=== PATIENT | male | born 1950 | race Caucasian/White ===

== ENCOUNTER 2017-02-08 12:41 | Day surgery (SDC) | payer OTHER ==
[~2017-02-08 12:41] MED LIST: AMB10 PO; FLONASE NAS; HYGROTON 25 MG25 MG PO; MOBIC7.5 PO; PROTONIX PO
[2017-02-08 13:44] LABS: BASOPHILS 0.4 %; BASOPHILS ABSOLUTE 0.03 10/3/uL (0.0-0.16); EOSINOPHILS 2.9 %; EOSINOPHILS ABSOLUTE 0.21 10/3/uL (0.0-0.53); HEMOGLOBIN 15.9 g/dL (13.6-17.8); IMMATURE GRANULOCYTES 0.4 %; IMMATURE GRANULOCYTES ABSOLUTE 0.03 10/3/uL (0.0-0.11); LYMPHOCYTES 17.3 %; LYMPHOCYTES ABSOLUTE 1.27 10/3/uL (0.67-4.30); MEAN CORPUS HGB CONC 34.6 g/dL (32.0-36.0); MEAN CORPUSCULAR HEMOGLOB 31.8 pg (26.0-34.0); MEAN PLATELET VOLUME 9.7 fL (9.2-13.0); MONOCYTES ABSOLUTE 0.96 10/3/uL (0.21-1.20); NEUTROPHILS ABSOLUTE 4.86 10/3/uL (2.02-8.40); PLATELET COUNT 200 10/3/uL (150-400); RBC DISTRIBUTION WIDTH 13.2 % (12.0-16.0); WHITE BLOOD CELLS 7.4 10/3/uL (4.5-10.5)
[2017-02-08 13:47] LABS: MANUAL DIFF NO %
[2017-02-08 13:52] LABS: INTERNATIONAL NORMAL RATI 1.1 UNITS (-); PARTIAL THROMBO TIME 26.1 SEC (22.5-37.2); PROTIME (NOT ORD) 13.8 SEC (12.0-14.5)
[2017-02-08 13:55] LABS: CALCIUM, SERUM 9.6 MG/DL (8.5-10.4); CHLORIDE, SERUM 104 MMOL/L (96-112); CO2 (CARBON DIOXIDE) 33 MMOL/L (24-34); CREATININE 1.22 MG/DL (0.70-1.30); GFR AFRICAN AMERICAN 72 ML/MIN (>=60); GFR NON AFRICAN AMERICAN 62 ML/MIN (>=60); GLUCOSE, SERUM 97 MG/DL (60-99); POTASSIUM, SERUM 3.6 MMOL/L (3.5-5.3); SODIUM, SERUM 140 MMOL/L (135-148)
[2017-02-08 13:56] LABS: BUN (BLOOD UREA NITROGEN) 18 MG/DL (6-23)
== END 2017-02-08 20:53 | disposition home or self-care (01) ==
LOC: DMU 12:41
PROVIDERS: Anesthesiology; Internal Medicine
PROC: 07B74ZX Excision of Thorax Lymphatic, Percutaneous Endoscopic Approach, Diagnostic (ICD-10-PCS; principal; 2017-02-08 14:00)
DX: R59.0 Localized enlarged lymph nodes (principal); K21.9 Gastro-esophageal reflux disease without esophagitis; H91.90 Unspecified hearing loss, unspecified ear; M19.90 Unspecified osteoarthritis, unspecified site; Z79.51 Long term (current) use of inhaled steroids; Z79.1 Long term (current) use of non-steroidal anti-inflammatories (NSAID); Z79.899 Other long term (current) drug therapy; Z98.890 Other specified postprocedural states; Z85.828 Personal history of other malignant neoplasm of skin
CPT/HCPCS: 71010; 80048; 85025; 85610; 85730; 87015; 87070; 87102; 87116; 87205; 88172; 88173; 88305; 88312; 93005; C1725; J2405; J3010

== ENCOUNTER 2017-03-16 14:50 | Inpatient (IN) | payer OTHER ==
--- NOTE | ~2017-03-16 | EGD ---
EGD REPORT [facility] [address] [address] NAME: ANDREW TAPIA : [birth year] STATUS : ADM IN PAT#: [id number] AGE: 66 ADM/REG DATE : 03/16/17 MR#: [id number] REPORT SERV DATE: 03/17/17 DICTATED BY: YAW HSU DATE: 03/17/17 REPORT STATUS : Draft [facility]ANSCRIBED BY: [facility] DATE: 03/17/17 [facility] Center Patient Name: Andrew Tapia Date of : 1950 Attending MD: YAW HSU MD Procedure Date No Time: 03/17/2017 Procedure: Upper GI endoscopy Indications: Place PEG due to feeding difficulties secondary to oropharyngeal tumor Referring MD: KARLEE JUNG Medicines: as per anesthesia Complications: No immediate complications. Procedure: Pre-Anesthesia Assessment: - ASA Grade Assessment: II - A patient with mild systemic disease. After obtaining informed consent, the endoscope was passed under direct vision. Throughout the procedure, the patient's blood pressure, pulse, and oxygen saturations were monitored continuously. The GIF [id number] was introduced through the mouth, and advanced to the third part of duodenum. The upper GI endoscopy was accomplished without difficulty. The patient tolerated the procedure. Findings: The examined esophagus was normal. Patchy moderate inflammation characterized by erythema and friability was found in the gastric fundus and in the gastric body. Multiple sessile polyps were found in the gastric fundus and in the gastric body. The cardia and gastric fundus were normal on retroflexion. The examined duodenum was normal. The patient was placed in the supine position for PEG placement. The stomach was insufflated to appose gastric and abdominal kay. A site was located in the body of the stomach with good transillumination for placement. The abdominal wall was marked and prepped in a sterile manner. The area was anesthetized with 4 mL of 1% lidocaine. The trocar needle was introduced through the abdominal wall and into the stomach under direct endoscopic view. A snare was introduced through the endoscope and opened in the gastric lumen. The guide wire was passed through the trocar and into the open snare. The snare was closed around the guide wire. The endoscope and snare were removed, pulling the wire out through the mouth. A skin incision was made at the site of needle insertion. The externally removable 24 Fr EndoVive Safety gastrostomy tube was lubricated. The G-tube was tied to the guide wire and pulled EGD REPORT [address] [place]. [address] NAME: ANDREW TAPIA : [birth year] STATUS : ADM IN [facility]#: [id number] AGE: 66 ADM/REG DATE : 03/16/17 MR#: [id number] REPORT SERV DATE: 03/17/17 DICTATED BY: YAW HSU DATE: 03/17/17 REPORT STATUS : Draft [facility]ANSCRIBED [facility]: [facility] DATE: 03/17/17 through the mouth and into the stomach. The trocar needle was removed, and the gastrostomy tube was pulled out from the stomach through the skin. The external bumper was attached to the gastrostomy tube, and the tube was cut to remove the guide wire. The final position of the gastrostomy tube was confirmed by relook endoscopy, and skin marking noted to be 3 cm at the external bumper. The final tension and compression of the abdominal wall by the PEG tube and external bumper were checked and revealed that the bumper was loose and lightly touching the skin and that the PEG balloon was loose and lightly touching the stomach. The feeding tube was capped, and the tube site cleaned and dressed. Impression: - Normal esophagus. - Gastritis. - Multiple gastric polyps. - Normal examined duodenum. - An externally removable PEG placement was successfully completed. Recommendation: - Please follow the post-PEG recommendations. Procedure Code(s): --- Professional --- 99524, Esophagogastroduodenoscopy, flexible, transoral; with directed placement of percutaneous gastrostomy tube Diagnosis Code(s): --- Professional --- K29.70, Gastritis, unspecified, without bleeding K31.7, Polyp of stomach and duodenum D37.05, Neoplasm of uncertain behavior of pharynx R63.3, Feeding difficulties Z43.1, Encounter for attention to gastrostomy CPT copyright 2013 [employer]. All rights reserved. The codes documented in this report are preliminary and upon paint coating machine operator review may be revised to meet current compliance requirements. YWA HSU MD 03/17/2017 2:48 PM This report has been signed electronically. Number of Addenda: 0 Note Initiated On: 03/17/2017 2:01 PM Scope Withdrawal Time 0 hours 0 minutes 0 seconds EGD REPORT [facility] [address] [address] NAME: ANDREW TAPIA : [birth year] STATUS : ADM IN [facility]#: [id number] AGE: 66 ADM/REG DATE : 03/16/17 MR#: [id number] REPORT SERV DATE: 03/17/17 DICTATED BY: YAW HSU DATE: 03/17/17 REPORT STATUS : Draft TRANSCRIBED BY: [employer] DATE: 03/17/17 [address] [id number]
--- NOTE | ~2017-03-16 | CN ---
Consultation Report [facility] [address] [place]. 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 He has been followed by Dr. Casas and Dr. Singh. Dr. Casas is out of town and Dr. Jordan admitted him from clinic today, decreased appetite, dehydration, weight loss, nausea, vomiting, odynophagia, some minimal dysphagia, and some GERD. SOCIAL HISTORY: Positive nicotine, occasional EtOH. FAMILY HISTORY: Positive for colon cancer. LABORATORY DATA: LFTs are normal. Hemoglobin 15.2, white count 10.3, INR is normal, and platelet count 137,000. Had colonoscopy in 2013 with diverticular disease. PHYSICAL EXAMINATION: GENERAL: A well-developed, well-nourished white male, alert. HEENT: Some facial rash related to the chemo. NECK: Again, some sequelae on the lymph nodes, on the left. CHEST: Clear to percussion. HEART: Regular rhythm. No murmur or gallop. ABDOMEN: Soft and nontender. Bowel sounds are active. EXTREMITIES: Grossly intact. NEUROLOGIC: Grossly intact. ASSESSMENT: Stage IV oropharyngeal cancer, one month of radiation and chemo, last chemo today. Nausea, vomiting, weight loss, odynophagia. Request for PEG placement. SUGGESTION: Risks, benefits with the patient's family agreed to proceed with PEG placement. DIANA/FRANCISCO Yaw Hsu M.D. / [id number] Consultation Report [address] [place]. [address] NAME: DOMI AGGARWAL : [birth year] STATUS : ADM IN PAT#: [id number] AGE: 66 ADM/REG DATE : 03/16/17 MR#: [id number] REPORT SERV DATE: 03/17/17 DICTATED BY: YWA HSU DATE: 03/16/17 REPORT STATUS : Draft TRANSCRIBED BY: FRANCISCO DATE: 03/16/17 CC: MD Garland Serrano M.D.
--- NOTE | ~2017-03-16 | HP ---
History And Physical [address] [address] NAME: DOMI AGGARWAL : [birth year] STATUS : ADM IN [facility]#: [id number] AGE: 66 ADM/REG DATE : 03/16/17 MR#: [id number] REPORT SERV DATE: 03/16/17 DICTATED BY: JOSH DONNELLY DATE: 03/16/17 REPORT STATUS : Draft TRANSCRIBED BY: MODL DATE: 03/16/17 DATE OF ADMISSION: 03/16/2017 REASON FOR ADMISSION: Direct admission from Dr. Rios' clinic for IV fluids and probable PEG tube placement. HISTORY OF PRESENT ILLNESS: A 66-year-old white male with a history of stage 4A oropharynx cancer, T1 N2a M0 G2, currently getting weekly dose of cetuximab as radiosensitization of his head and neck cancer. He is followed closely by Dr. Singh and Dr. Casas. Given his head and neck cancer, there have been talks about getting a PEG tube placement in the future. The patient presents to Dr. Jordan's clinic today with complaints of nausea, dehydration, and weakness. He has not eaten anything since Wednesday. He had received what sounded like at least over a liter of IV fluids in the clinic and Dr. Jordan was requesting a direct admission for Dr. Rios to evaluate for PEG tube placement in this patient who is malnourished. REVIEW OF SYSTEMS: The patient denies any chest pain, fever, chills, diarrhea, or shortness of breath. PAST MEDICAL HISTORY: Reflux. Insomnia. 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 PAST SURGICAL HISTORY: Biopsy by Dr. Daniel. SOCIAL HISTORY: He is , living with his spouse who is a non-smoker. Denies any significant alcohol or illicit drug use. FAMILY HISTORY: Positive for stroke. MEDICATIONS: Include 1. Alclometasone topical ointment. 2. Ativan 1 mg tablet p.r.n. 3. Bupropion 150 mg every 12 hours. 4. Chlorthalidone 25 mg tablet. 5. Clindamycin 1% topical gel. 6. Doxycycline 100 mg twice a day. 7. Hydrocortisone cream. 8. Magic mouthwash. 9. Meloxicam. 10.Protonix 40 mg daily. 11.Promethazine 12.5 mg tablet. 12.Ambien 10 mg tablet. 13.Zofran p.r.n. ALLERGIES: NO KNOWN ALLERGIES. History And Physical [address] [address] NAME: DOMI AGGARWAL : [birth year] STATUS : ADM IN [facility]#: [id number] AGE: 66 ADM/REG DATE : 03/16/17 MR#: [id number] REPORT SERV DATE: 03/16/17 DICTATED BY: JOSH DONNELLY DATE: 03/16/17 REPORT STATUS : Draft TRANSCRIBED BY: FRANCISCO DATE: 03/16/17 PHYSICAL EXAMINATION: VITAL SIGNS: The patient's blood pressure is 128/72, temperature is 97.6, and pulse is 81. GENERAL: He is in no acute distress. Alert and oriented x3, very pleasant, accompanied by his . HEENT: Normocephalic and atraumatic head. Extraocular muscles are intact. Oropharynx is dry. There is a diffuse macular rash on his face. CARDIAC: Regular rhythm. No murmurs, rubs, or gallops. PULMONARY: Clear to auscultation bilaterally. ABDOMEN: Soft, nontender, and nondistended. Positive bowel sounds. EXTREMITIES: Show no clubbing, cyanosis, or edema. NEUROLOGIC: No focal deficits. PSYCHIATRIC: The patient is cooperative. Mood is appropriate. SKIN: Warm and dry. LABORATORY DATA: Labs are pending. IMPRESSION: 1. Nausea secondary to chemotherapy, dehydration secondary to chemotherapy, moderate malnutrition stage 4A oropharynx cancer, facial rash secondary to chemotherapy. 2. Reflux. Plan is to do IV fluids. Antiemetics. Pain control. We will consult Dr. Rios for PEG tube. We will make the patient n.p.o. after midnight. We will check a CBC, CMP, and prealbumin level today. SHANNON/FRANCISCO Josh Donnelly MD / [id number] CC: MD Garland Serrano M.D. Gregory R. Sutton, MD
--- NOTE | ~2017-03-16 | DS ---
Discharge Summary [facility] [place]. [address] NAME: DOMI AGGARWAL : 54 STATUS : DIS IN PAT#: [id number] AGE: 66 ADM/REG DATE : 03/16/17 MR#: [id number] REPORT SERV DATE: 03/20/17 DICTATED BY: JOSH DONNELLY DATE: 03/19/17 REPORT STATUS : Draft TRANSCRIBED BY: MODL DATE: 03/19/17 ADMISSION DATE: 03/16/2017 DISCHARGE DATE: 03/19/2017 REASON FOR ADMISSION: Direct admission from Dr. Jordan's office for IV fluids, dehydration, and PEG tube placement. HISTORY OF PRESENT ILLNESS: Please refer to my history and physical dated 03/16/2017 for complete details regarding the patient's admission. In brief, the patient was admitted to the Hospitalist Service for management of his nausea secondary to chemotherapy and for IV hydration and for PEG tube placement. HOSPITAL COURSE: The patient had an uncomplicated hospital course. He presented from Dr. Jordan's office and was put on IV fluids. He continued to have radiation therapy while he was in the hospital. He was supported with antiemetics and pain control. He was given steroids for his facial rash secondary to chemotherapy. Dr. Rios was consulted for PEG tube placement. Dr. Rios had successfully placed an externally removable PEG tube on 03/17/2017. He was started on tube feeds and he has reached maximal goal without any issues. Nutrition had written recommendations for bolus feeds for home. The patient feels much stronger. He continued his weekly radiation therapy. We are currently arranging home health for this patient and he will be discharged today in a stable condition once home health is arranged to continue his bolus feeds and he will follow up on Wednesday for resumption of radiation therapy and on Wednesday for chemotherapy. DISCHARGE DIAGNOSES: 1. Nausea secondary to chemotherapy. 2. Dehydration secondary to chemotherapy. 3. Moderate malnutrition, status post PEG tube placement. 4. Stage [place] oropharynx cancer with ongoing chemotherapy and radiation. 5. Facial rash secondary to chemotherapy. PROCEDURES: Include consultation with Dr. Rios, PEG tube placement. DISCHARGE MEDICATIONS: Include Ativan 1 mg p.r.n.; Protonix 40 mg daily; Erbitux every seven days; clindamycin gel to the face; doxycycline 100 mg with breakfast and supper, maintenance therapy; hydrocodone p.r.n. pain; Wellbutrin 150 mg twice a day; hydrocortisone cream to his face; magic mouthwash p.r.n.; Zofran; ibuprofen; Mobic 7.5 mg daily; chlorthalidone 25 mg daily; Phenergan p.r.n. nausea; and Ambien p.r.n. sleep. Spending over 30 minutes discharge planning and coordination of care. DICTATED BY: MD SHANNON Serrano/FRANCISCO Discharge Summary [address] [place]. [address] NAME: DOMI AGGARWAL : 54 STATUS : DIS IN PAT#: [id number] AGE: 66 ADM/REG DATE : 03/16/17 MR#: [id number] REPORT SERV DATE: 03/20/17 DICTATED BY: JOSH DONNELLY DATE: 03/19/17 REPORT STATUS : Draft TRANSCRIBED BY: FRANCISCO DATE: 03/19/17 Josh Donnelly MD / [id number] CC: MD Garland Serrano M.D. Gregory R. Sutton, MD
[2017-03-16 16:02] LABS: BASOPHILS 0.1 %; BASOPHILS ABSOLUTE 0.01 10/3/uL (0.0-0.16); EOSINOPHILS 0.1 %; EOSINOPHILS ABSOLUTE 0.01 10/3/uL (0.0-0.53); HEMATOCRIT 43.5 % (40.0-51.0); HEMOGLOBIN 15.2 g/dL (13.6-17.8); IMMATURE GRANULOCYTES 0.4 %; IMMATURE GRANULOCYTES ABSOLUTE 0.04 10/3/uL (0.0-0.11); LYMPHOCYTES ABSOLUTE 0.21 10/3/uL (0.67-4.30); MEAN CORPUS HGB CONC 34.9 g/dL (32.0-36.0); MEAN CORPUSCULAR HEMOGLOB 31.3 pg (26.0-34.0); MEAN CORPUSCULAR VOLUME 89.7 fL (80-100); MEAN PLATELET VOLUME 8.8 fL (9.2-13.0); MONOCYTES 1.6 %; MONOCYTES ABSOLUTE 0.17 10/3/uL (0.21-1.20); NEUTROPHILS 95.8 %; RBC DISTRIBUTION WIDTH 12.8 % (12.0-16.0); RED CELL COUNT 4.85 10/6/uL (4.7-6.1); WHITE BLOOD CELLS 10.3 10/3/uL (4.5-10.5)
[2017-03-16 16:03] LABS: MANUAL DIFF NO %; PLATELET COUNT 137 10/3/uL (150-400)
[2017-03-16 16:16] LABS: INTERNATIONAL NORMAL RATI 1.1 UNITS (-); PARTIAL THROMBO TIME 25.9 SEC (22.5-37.2); PROTIME (NOT ORD) 13.9 SEC (12.0-14.5)
[2017-03-16 16:27] LABS: CALCIUM, SERUM 8.9 MG/DL (8.5-10.4); CHLORIDE, SERUM 100 MMOL/L (96-112); CREATININE 0.85 MG/DL (0.70-1.30); GFR AFRICAN AMERICAN 107 ML/MIN (>=60); GFR NON AFRICAN AMERICAN 92 ML/MIN (>=60); PHOSPHORUS, SERUM 2.1 MG/DL (2.5-4.5); POTASSIUM, SERUM 3.6 MMOL/L (3.5-5.3); SGOT(AST) 19 U/L (5-40); SGPT(ALT) 33 U/L (5-65); SODIUM, SERUM 136 MMOL/L (135-148); TOTAL BILIRUBIN 0.6 MG/DL (0-1.2); TOTAL PROTEIN 6.5 G/DL (6.0-8.5)
[2017-03-16 16:29] LABS: ALBUMIN 3.2 G/DL (3.5-5.0); ALKALINE PHOSPHATASE 105 U/L (45-117); BUN (BLOOD UREA NITROGEN) 14 MG/DL (6-23); CO2 (CARBON DIOXIDE) 28 MMOL/L (24-34); GLOBULIN 3.3 G/DL (2.5-4.1); GLUCOSE, SERUM 145 MG/DL (60-99)
[2017-03-16 18:49] LABS: PREALBUMIN 18.8 MG/DL (17.0-43.0)
[2017-03-16] MEDS ORDERED: ERBITUX IV (21:36)
[2017-03-16] MEDS ORDERED: ALCLOMETASONE TOP (21:39)
[2017-03-16] MEDS ORDERED: CLEOTGEL TOP (21:40)
[2017-03-16] MEDS ORDERED: MONODOX100 MG PO (21:40)
[2017-03-16] MEDS ORDERED: HYCET 7.5 MG-3473 ML PO (21:41)
[2017-03-16] MEDS ORDERED: WELLSR150 PO (21:42)
[2017-03-16] MEDS ORDERED: ATV1 PO (21:42)
[2017-03-16] MEDS ORDERED: HYDROCORTISONE30 G1 TOP (21:43)
[2017-03-16] MEDS ORDERED: MAGIC MOUTHWASH PO (21:44)
[2017-03-16] MEDS ORDERED: ZOFRAN4 PO (21:44)
[2017-03-16] MEDS ORDERED: MOBIC7.5 PO (21:45)
[2017-03-16] MEDS ORDERED: PROTONIX PO (21:45)
[2017-03-16] MEDS ORDERED: ADVIL PO (21:45)
[2017-03-16] MEDS ORDERED: HYGROTON 25 MG25 MG PO (21:45)
[2017-03-16] MEDS ORDERED: PR12.5 PO (21:46)
[2017-03-16] MEDS ORDERED: AMB5 PO (21:46)
[2017-03-16] MEDS ORDERED: FLONASE NAS (21:46)
[2017-03-17 05:24] LABS: BASOPHILS 0 %; EOSINOPHILS 0 %; HEMATOCRIT 41.7 % (40.0-51.0); HEMOGLOBIN 14.5 g/dL (13.6-17.8); IMMATURE GRANULOCYTES 0.4 %; IMMATURE GRANULOCYTES ABSOLUTE 0.04 10/3/uL (0.0-0.11); LYMPHOCYTES 4.3 %; LYMPHOCYTES ABSOLUTE 0.41 10/3/uL (0.67-4.30); MANUAL DIFF NO %; MEAN CORPUS HGB CONC 34.8 g/dL (32.0-36.0); MEAN CORPUSCULAR HEMOGLOB 31.3 pg (26.0-34.0); MEAN CORPUSCULAR VOLUME 90.1 fL (80-100); MONOCYTES 6.8 %; MONOCYTES ABSOLUTE 0.64 10/3/uL (0.21-1.20); NEUTROPHILS 88.5 %; NEUTROPHILS ABSOLUTE 8.39 10/3/uL (2.02-8.40); PLATELET COUNT 146 10/3/uL (150-400); RBC DISTRIBUTION WIDTH 12.4 % (12.0-16.0); RED CELL COUNT 4.63 10/6/uL (4.7-6.1); WHITE BLOOD CELLS 9.5 10/3/uL (4.5-10.5)
[2017-03-17 05:34] LABS: BUN (BLOOD UREA NITROGEN) 13 MG/DL (6-23); CALCIUM, SERUM 9.2 MG/DL (8.5-10.4); CHLORIDE, SERUM 103 MMOL/L (96-112); CO2 (CARBON DIOXIDE) 26 MMOL/L (24-34); CREATININE 0.74 MG/DL (0.70-1.30); GFR AFRICAN AMERICAN 113 ML/MIN (>=60); GFR NON AFRICAN AMERICAN 97 ML/MIN (>=60); GLUCOSE, SERUM 123 MG/DL (60-99); PHOSPHORUS, SERUM 2.4 MG/DL (2.5-4.5); POTASSIUM, SERUM 3.6 MMOL/L (3.5-5.3); SODIUM, SERUM 137 MMOL/L (135-148)
== END 2017-03-19 15:29 | disposition home health service (06) | DRG 147 ==
LOC: 4EA 14:50
PROVIDERS: Internal Medicine
PROC: 0DH68UZ Insertion of Feeding Device into Stomach, Via Natural or Artificial Opening Endoscopic (ICD-10-PCS; principal; 2017-03-16)
DX: C10.9 Malignant neoplasm of oropharynx, unspecified (principal); E44.0 Moderate protein-calorie malnutrition; Z68.26 Body mass index [BMI] 26.0-26.9, adult; L27.1 Localized skin eruption due to drugs and medicaments taken internally; T45.1X5A Adverse effect of antineoplastic and immunosuppressive drugs, initial encounter
CPT/HCPCS: 77336; 77386; 80048; 80053; 83735; 84100; 84134; 85025; 85610; 85730; A9270-GY; C9113; J3475